=== PATIENT | female | born 1995 | race Caucasian/White ===

== ENCOUNTER 2024-07-27 14:34 | Outpatient (CLI) | payer OTHER, SELFPAY ==
--- NOTE | 2024-07-27 14:45 | CRLHL7_ITS ---
For Patients: As a result of the Cures Act, medical imaging exams and procedure reports are released immediately into your electronic medical record. You may view this report before your referring provider. If you have questions, please contact your health care provider. OB ULTRASOUND INDICATION: Dating and viability. TECHNIQUE: Real time grayscale imaging of the fetus was performed. Transvaginal. LMP: 05/25/2024. CARLI by LMP: 03/01/2025. GA: 9 w, 0 d. Previous US: No. CRL: 1.8 cm. 8 w 2 d. CARLI: 03/06/2025. FHR: 159 BPM. Gestational sac: 3.1 cm. Appears within normal limits. Yolk sac: 2.9 mm. Appears within normal limits. Right ovary: N/V. Left ovary: Within normal limits. 3.2 x 2.2 x 2.6 cm. CL. IMPRESSION: Single living intrauterine measuring 8 weeks 2 days and sonographic due date 03/06/2025. Damian Thompson M.D. Diagnostic Radiologist [email or web address] JEANETTE/zaki haines/Dictated by: Damian Thompson MD @ 07/27/2024 3:57:00 PM (Electronically Signed)
== END 2024-07-27 14:35 | disposition home or self-care (01) ==
LOC: US 14:37
PROVIDERS: PCP Family Medicine; Visit Provider Physician Assistant
DX: Z34.91 Encounter for supervision of normal pregnancy, unspecified, first trimester (principal); Z3A.08 8 weeks gestation of pregnancy
CPT/HCPCS: 76817; 83021; 86592; 86703; 86704; 86706; 86762; 86787; 86803; 86850; 86900; 86901; 87086; 87340; 87491; 87591

== ENCOUNTER 2024-10-19 07:13 | Outpatient (CLI) | payer OTHER, SELFPAY ==
--- NOTE | 2024-10-19 07:15 | CRLHL7_ITS ---
For Patients: As a result of the Century Cures Act, medical imaging exams and procedure reports are released immediately into your electronic medical record. You may view this report before your referring provider. If you have questions, please contact your health care provider. OB ULTRASOUND GREATER THAN 14 WEEKS, 10/19/2024 CLINICAL HISTORY: screen. COMPARISON: 07/27/2024. TECHNIQUE: Multiple transabdominal grayscale, color and M-mode Doppler images were obtained. FINDINGS: LMP: 05/25/2024. CARLI by LMP: 03/01/2025. GA: 21 weeks 0 days. Position: Vertex. Cervix: Visualized. Technique: TA. Length of closed cervix: 3.5 cm. Placenta/Cord Placenta Position: Posterior. Technique: TA. Placenta tip to internal OS: 8.1 cm. Umbilical Cord: 3 vessel cord. Placental Insertion: Central. Amniotic Fluid: 4.8 cm SDP. Observed Structures: Calvarium/Spine: Cerebellum: 2.0 cm, 20 weeks 1 day Cisterna Magna: 4.3 mm Nuchal Fold: 5.2 mm Lateral Ventricle: 4.9 mm CSP Choroid Plexus Midline Falx Spine Abdomen: Stomach Abd Cord Insert Urinary Bladder Kidneys Diaphragm Face: Nose/lips Orbital view Profile Limbs: Upper Extremities Lower Extremities Hands Feet Vascular: 4 Ch Heart LVOT RVOT 3VV 3VTV IMPRESSION: 1. Estimated weight is at the 22nd percentile. 2. Normal anatomic survey. Patricio Munoz M.D. Body/Diagnostic Radiologist [email or web address] Transcribed: 2:12 pm DW/Dictated by: Patricio Munoz MD @ 10/20/2024 1:44:00 PM (Electronically Signed)
== END 2024-10-19 07:14 | disposition home or self-care (01) ==
LOC: US 07:13
PROVIDERS: PCP Family Medicine; Visit Provider Advanced Practice Midwife
DX: Z34.92 Encounter for supervision of normal pregnancy, unspecified, second trimester (principal); Z3A.21 21 weeks gestation of pregnancy
CPT/HCPCS: 76805

== ENCOUNTER 2024-12-15 08:23 | Outpatient (CLI) | payer OTHER, SELFPAY | END 2024-12-15 08:24 | disposition home or self-care (01) | LOC: NFLDREF 12-17 09:53 | PROVIDERS: PCP Family Medicine; Referring Provider Family Medicine; Visit Provider Advanced Practice Midwife | DX: Z34.93 Encounter for supervision of normal pregnancy, unspecified, third trimester (principal) | CPT/HCPCS: 86592 ==

== ENCOUNTER 2025-02-02 13:30 | Outpatient (CLI) | payer OTHER, SELFPAY | END 2025-02-02 13:31 | disposition home or self-care (01) | LOC: NFLDREF 02-04 12:44 | PROVIDERS: PCP Family Medicine; Referring Provider Family Medicine; Visit Provider Advanced Practice Midwife | DX: Z34.93 Encounter for supervision of normal pregnancy, unspecified, third trimester (principal) | CPT/HCPCS: 87081; 87653 ==

== ENCOUNTER 2025-02-24 11:25 | Inpatient (IN) | payer OTHER, SELFPAY ==
[2025-02-24] VITALS (28 sets, daily range): BP systolic 103–143; BP diastolic 56–92; PULSE 78–149; TEMP 36.2–36.8; O2SAT 82–100; BMI 32.4
--- NOTE | 2025-02-24 12:31 | P.LDBA_ITS ---
Subjective History of Present Illness Narrative: Meek is a 30 yo at 39 2/7 weeks gestation being admitted to Labor and Delivery for PROM that occurred at 0730 am this morning with clear fluid. She reports it she had a pop then a gush while leaving work this morning. She has continued to have bursts of clear, pink tinged fluid. She has had some cramping but denies regular contractions or bleeding. She endorses movement. 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 She is supported in labor by [facility]. Her full history and physical was dictated by JOHN Ascencio on 02/07/2025. Please see this for details. 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 Estimated weight is at the 22nd percentile. 2. Normal anatomic survey. Vaccinations: COVID: declined 12/15/2024 Flu: declined 12/15/2024 (doing at target) Tdap: 01/19/2025 RSV: 01/19/2025 Last pap: [Only high-risk abnormal pap results in problem list] OB - Problem Based A/P Additional Plan (1) 39 weeks gestation of : Status: Acute (2) PROM (premature rupture of membranes): Status: Acute Plan ASSESSMENT:? 30 yo at 39.2 weeks gestation? complicated by:?none Labor type: early labor? Category 1 FHR pattern.?? Labor complicated by: PROM? GBS negative? ? PLAN:? 1. Routine intrapartum cares as ordered. Reviewed recommendation of pitocin with 6 hours after ROM vs expectant management for 12-24 hours. She agrees with expectant management, will re-evaluate around 1930 this evening. She is aware we may start pitocin augmentation at anytime otherwise will assess labor status at 1930 to determine if we can give labor more time vs start pitocin. 2. Monitoring per policy, intermittent? 3. Planning epidural. Candidate for analgesia of choice, when desired.?? 4. Patient encouraged to reposition and ambulate to promote physiologic labor and .? 5. Offered therapeutic rest this morning if needed, she was awake all night for work. 6. Anticipate ? Delivery/Labor/Induction Plan Plan: expectant management OB Result Labs Blood Type: O (+) positive GBS Status: negative OB Exam Physical Exam Vital signs: Temp Pulse BP Pulse Ox 97.9 F 86 118/62 96 02/24/25 12:11 02/24/25 11:08 02/24/25 11:08 02/24/25 11:48 Narrative: Vitals Reviewed Constitutional:? Alert and oriented x3 HEENT:? Normocephalic, atraumatic Neck:? Supple Lungs:? Clear to auscultation bilaterally Heart:? Regular rate and rhythm, no murmur, rub or gallop Abdomen:? Soft, nontender, and gravid. Vertex by Michael's, confirmed with bedside US Extremities:? No edema or erythema Cervix: Deferred with ROM; confirmed ROM with significant amniotic fluid on pad, pink tinged NST: [] bpm/[] variability/[]accelerations/[]decelerations/[]contractions Detailed Labor and Delivery Exam Patient Gravid: yes
[2025-02-24 19:00] LABS: Hematocrit* 35.3 % (33.0-51.0); Hemoglobin* 11.5 gm/dL (12.0-16.0); Immature Granulocytes Pct Auto 1.1 %; Lymphocytes Absolute Auto 2.10 K/uL (0.90-2.90); Mean Corpuscular HGB Conc 33 gm/dL (32-36); Mean Corpuscular Hemoglobin 28 pg (26-34); Mean Corpuscular Volume 85 fL (80-100); RDW Coefficient of Variation % 13.4 % (11.5-15.5); Red Blood Count* 4.15 m/uL (4.00-5.20); White Blood Count* 11.11 K/uL (4.50-11.00)
[2025-02-24 19:05] LABS: Immature Granulocytes Abs Auto 0.10 K/uL (0.00-0.30); Slide Review Reflex No
--- NOTE | 2025-02-24 19:54 | P.OBPN_ITS ---
Subjective Date Seen: 02/24/25 Narrative: Meek is a 30 yo at 39 2/7 weeks here following PROM at 0730 this morning. She is supported by her , Matthews. She worked last evening and was exhausted this morning when she arrived. She was able to rest some and get a nap. She continues to leak clear, pink tinged fluid. She reports she has been feeling some cramping but denies regular contractions. Objective Exam: Objective: Constitutional: Alert and oriented x3, no distress, coping well Vital signs stable, see nurse documentation Abdomen: gravid, contractions palpate mild/moderate with contractions and soft between Cervix: deferred NST: 120 bpm/moderate variability/15x15 accelerations/no decelerations/contractions 3-5 minutes lasting 50-120 seconds Vital Signs: Last Vital Signs Temp 98.1 F 02/24/25 18:32 Pulse 90 02/24/25 16:46 BP 103/56 L 02/24/25 16:46 Pulse Ox 96 02/24/25 11:48 Plan Plan: ASSESSMENT:? 30 yo at 39.2 weeks gestation? complicated by:?none Labor type: early labor? Category 1 FHR pattern.?? Labor complicated by: PROM >12 hours? GBS negative? ? PLAN:? 1. Routine intrapartum cares as ordered. Recommended IV Pitocin augmentation given little change in presentation, reviewed risk/benefit. Patient agreeable. All questions answered. 2. Monitoring per policy, intermittent? 3. Planning epidural. Candidate for analgesia of choice, when desired.?? 4. Patient encouraged to reposition and ambulate to promote physiologic labor and .? 5. Patient had elevated BP on arrival but while moving/talking. Patient was adjusted and BP was retaken was normal. 6. Anticipate ?
[2025-02-24] MEDS: LACTATED RINGERS 1000 ML 1,000 ML 125 ML IV (20:00)
[2025-02-24] MEDS: OXYTOCIN 30 unit/500 ML in NS 30 UNIT/500 ML BAG IVPB (20:01)
[2025-02-24] MEDS: LIDOCAINE 2% (PF) 5 ML VIAL EPIDURAL (22:43)
[2025-02-24] MEDS: ROPIVACAINE 0.2% 100 ml 100 ML 12 MG EPIDURAL (22:43)
[2025-02-24] MEDS: LACTATED RINGERS 1000 ML 1,000 ML 925 ML IV (22:56)
--- NOTE | 2025-02-24 22:56 | PM.ANBPRC ---
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 (ICD-10) Chicken pox ?B01.9 - Varicella without complication (ICD-10) Acne ?L70.9 - Acne, unspecified (ICD-10) Concussion ?S06.0XAA - Concussion with loss of consciousness status unknown, initial encounter (ICD-10) Family History Other Breast cancer Crohn disease High blood pressure Skin cancer Social History What is your current living situation?: I presently have a place to live Problems where you live: no known problems In the past 12 months, utilities in danger of being shut off: no In past 12 months, lack of transportation kept you from medical appts, meetings, work, or getting things needed for daily living: no In the past 12 mos, have been you worried that your food would run out before you had money to buy more?: never true In the past 12 mos, the food you bought just didn't last and you didn't have money to buy more?: never true Smoking Status: Never smoker How often does anyone, including family, friends and others, physically hurt you: never How often does anyone, including family, friends and others, insult or talk down to you: never How often does anyone, including family, friends and others, threaten you with harm: never How often does anyone, including family, friends and others, scream or curse at you: never Meds Home Medications and Allergies Home Medications ?Medication ?Instructions ?Recorded ?Confirmed ?Type docosahexaenoic acid 200 mg mg PO 07/27/24 02/22/25 History capsule ( DHA) doxylamine succinate 25 mg tablet 25 mg PO QHS PRN 11/18/24 02/24/25 History (Unisom (doxylamine)) erythromycin with ethanol 2 % 1 applic topical BID PRN 12/15/24 02/24/25 History topical gel valacyclovir 1 gram tablet 1,000 mg PO QDAY PRN 01/19/25 02/24/25 History Allergies Allergy/AdvReac Type Severity Reaction Status Date / Time cephalexin Allergy Intermediate Verified 02/24/25 10:53 Sulfa (Sulfonamide Allergy Intermediate Verified 02/24/25 10:53 Antibiotics) Results Labs Labs: Laboratory Results - last 24 hr 02/24/25 18:50 WBC 11.11 H RBC 4.15 Hgb 11.5 L Hct 35.3 MCV 85 MCH 28 MCHC 33 RDW Coeff of Charity 13.4 Plt Count 196 Neut % (Auto) 74.3 H Lymph % (Auto) 18.9 L Waldo % (Auto) 4.9 Eos % (Auto) 0.7 Baso % (Auto) 0.1 Neut # (Auto) 8.30 H Lymph # (Auto) 2.10 Waldo # (Auto) 0.50 Eos # (Auto) 0.10 Baso # (Auto) 0.00 Abs Immat Gran (auto) 0.10 Imm/Tot Granulo (auto) 1.1 Vital Signs Vital Signs: Last Vital Signs Temp 98.1 F 02/24/25 20:04 Pulse 83 02/24/25 22:52 BP 122/78 02/24/25 22:52 Pulse Ox 96 02/24/25 22:50 Weight: 91.172 kg Height: 167.64 cm Anesthesia Procedures Epidural Insertion Patient Location: OB Start Time: 10:20 Stop Time: 22:56 Start Date: 02/24/25 Stop Date: 02/24/25 Reason for Block: procedure for pain Patient Position: sitting Performed By: Glenny Mata Preanesthetic Checklist: IV checked, risks and benefits discussed, monitors and equipment checked, pre-op evaluation, timeout performed and anesthesia consent Prep: chlorhexidine gluconate Monitoring: blood pressure monitoring, continuous pulse oximetry and heart rate Approach: midline Vertebral Space: lumbar (1-5) Epidural Technique: WANG saline Needle Type: Tuohy needle Injection Technique: continuous catheter Needle gauge: 17 Needle Length (cm): 10 cm Needle Insertion Depth (cm): 6 Catheter Gauge: 19 Catheter Type: multi-orifice Catheter at skin depth (cm): 12 Test Dose Result: negative and lidocaine 1.5% with epinephrine 1 to 200,000
[2025-02-25] VITALS (14 sets, daily range): BP systolic 115–138; BP diastolic 66–85; PULSE 82–110; RESP 16–18; TEMP 36.6–36.9; O2SAT 95–98
--- NOTE | 2025-02-25 00:42 | W.PM.OBVAGDE ---
OB Procedure Vag Delivery Mother Details Mother Details: The patient is a 30 year-old, 1, now Para 1, admitted on 02/24/25 at 39.2 Days gestation. : 1 Para: 1 Weeks Gestation: 39.3 Admission Date: 02/24/25 Additional Details Amniotic Membrane Status: SROM Amniotic Membrane Rupture Date: 02/24/25 Amniotic Membrane Rupture Time: 07:30 Amniotic Membrane Fluid Description: Clear and [place] Analgesia/Anesthesia Type: Epidural Waterbirth: No Pitcoin: Yes Intrapartal Events: Labor Augmentation and Precipitous Labor <3 Hrs Labor Onset: 22:09 Complete: 23:27 Pushin:34 Heart: heart tones during second stage were category II with rise in baseline. Variables and lates with contractions that resolved with position changes. Delivery Details Delivery Date: 02/25/25 Delivery Time: 00:10 Route of delivery: Infant Gender: Male Viability: Alive; Heart Rate Present Position at Delivery: OA Delivery Details: Patient was admitted for PROM of clear fluid at 0730 am. After 12 hours of expectant management, she was feeling minimal cramping. Pitocin was started at around 2000, she then progressed precipitously with augmentation, reaching a max pitocin dose of 4 mu. She utilized an epidural for pain. Patient was complete at 2337 and pushing at 2334. At onset of pushing, continued trickle of vaginal bleeding. With change in FHR at time it was suspected there was a small placental abruption. No change in plan as delivery was imminent. of a viable male at 0010 in semi-fowlers on the bed. Vertex delivered OA. No nuchal cord or shoulder. Body delivered easily and without incident. Infant passed to mothers abdomen with a vigorous cry. Cord was clamped and cut at > 5 minutes. APGARS were 9 at one minute and 9 at five minutes respectively. Mouth was bulb suctioned. Intact placenta with a 3 vessel cord delivered spontaneously at 0018. A small area of clot adherent to placenta correlated with findings during pushing. Placenta to be sent to pathology. Fundus firm. 2nd degree vaginal laceration identified and repaired in typical fashion. QBL 75 cc after delivery, an EBL of 100ml with placenta and another 100 ml while pushing for total of 275. Mother and baby stable; mother plans to breastfeed. Infant weight pending. 1 Minute Interval Total Score: 9 5 Minute Interval Total Score: 9 Additional Details Shoulder Dystocia: No Placenta Delivery Time: 00:18 Placental Delivery Description: Spontaneous Delivery repair: Vicryl Procedure Done: Global Blood Loss: 275 Blood Loss Measurement Type: QBL Bakri Used: No Sponge/Need Count Correct: Yes Cord Vessel Description: 3 Vessels Event Summary Status: Mother and infant were stable after delivery. Disposition: floor
[2025-02-25] MEDS: miSOPROStoL 800 MCG/4 TABLET PR (01:11)
[2025-02-25] MEDS: IBUPROFEN 600 MG TABLET PO ×3 (03:02→17:57)
[2025-02-25] MEDS: ACETAMINOPHEN 500 MG TABLET 1000 MG PO ×3 (08:00→20:48)
[2025-02-25] MEDS: DOCUSATE SODIUM 100 MG CAPSULE PO (08:49)
--- NOTE | 2025-02-25 10:47 | PM.ANPOST ---
Post Anesthesia Note Post Anesthesia Note Patient seen: Inpatient Respiratory Status: adequate Cardiovascular Status: adequate Mental Status: baseline Pain: adequate Temp: baseline Anesthetic awareness: N/A Complications: none Follow care: none
[2025-02-25] MEDS: LANOLIN CREAM 1 APPLIC TOPICAL (18:00)
[2025-02-26 05:01] VITALS: BP 119/80; PULSE 77; RESP 18; TEMP 36.9; O2SAT 96
[2025-02-26] MEDS: IBUPROFEN 600 MG TABLET PO (05:02)
--- NOTE | 2025-02-26 08:45 | P.DS_ITS ---
DS: Providers Provider Date Seen: 02/26/25 Date of admission: 02/24/25 11:25 Primary care physician: Brenad Diaz MD Admitting Clinician: Carol Gan CNM Attending Physician on discharge: Carol Gan CNM Date of Discharge: 02/26/25 DS: Diagnosis Discharge Diagnosis (1) care following vaginal delivery: Status: Acute (2) Lactating mother: Status: Acute Exam Narrative: Exam Narrative: GENERAL APPEARANCE:? normal?affect, alert, no distress? MOOD:? appropriate? CHEST:? clear?to auscultation and percussion? HEART:? regular?rate and rhythm? BREASTS: soft, nontender, no erythema, nipples intact? ABDOMEN:? soft, non-tender?the uterine?fundus is?U/2?and is?appropriate for?the stage of recovery.? PERINEUM:? mild?edema of the perineum, there is?a?2nd degree laceration?that?is healing well.? EXTREMITIES:? normal?and no edema? Const: Vital Signs, click to edit/add: Vital Signs - 24 hr 02/25/25 12:41 02/25/25 16:49 02/25/25 20:41 Temperature 98.5 F 98.3 F 98.2 F Pulse Rate [Pulse Oximeter] 82 82 88 Respiratory Rate 18 16 16 Blood Pressure [Le ft Arm] 115/78 138/85 122/82 Pulse Oximetry 96 97 95 Oxygen Delivery Me thod Room Air Room Air Room Air 02/26/25 05:01 Temperature 98.4 F Pulse Rate [Pulse Oximeter] 77 Respiratory Rate 18 Blood Pressure [Le ft Arm] 119/80 Pulse Oximetry 96 Oxygen Delivery Me thod Room Air Documenting provider has reviewed patient's vital signs: yes OB - DS: Summary Hospital Course Hospital Course: Meek is a 30 year old G 1 P 1 at 39.3 weeks gestation that was admitted to the Center on 02/24/25 for PROM that progressed with Pitocin augmentation. She had an uncomplicated vaginal delivery. She delivered a viable male infant. She is breast feeding and denies current concerns with how it is going. the patient has done well. Her?pain is well controlled with current medications.??She has no new complaints.??Urinary output is?adequate?and she is voiding without difficulty.??Has?a good appetite, is tolerating a general diet, is passing flatus, and has?not?had a bowel movement.??Has?scant?amount?of rubra lochia.??She?is?ambulating?well. She is uncertain what she is planning for PP contraception. Options compatible with were reviewed and she will discuss with her partner. Peripartum Data delivery method: Vaginal Laceration description: Perineal - 2nd Degree Episiotomy description: None complications: none Whitman Gender: Male Infant Discharge Plan: Home Status at Discharge Functional status at discharge: independent ambulation Overall status at discharge: patient is progressing back to baseline Time Spent with Patient Time attestation: Total time spent providing and/or coordinating discharge services: Discharge Plan Discharge Disposition: Home, Self-Care Date of Admission: 02/24/25 11:25 Attending Provider on Discharge: Oliva Quintana Primary Care Provider: Brenda Diaz Condition: Stable Anticipated Discharge Date/Time: 02/26/25 10:00 Discharge Medications: New docusate sodium 100 mg Capsule 100 mg PO DAILY Qty: 120 0RF Rx Instructions: Take 1-2 tablets daily as needed for constipation. ibuprofen 600 mg Tablet 600 mg PO Q6H PRNQty: 60 0RF Continued DHA 200 mg capsule 200 mg PO DAILY erythromycin with ethanol 2 % gel 1 applic topical BID PRN valacyclovir 1 gram tablet 1,000 mg PO QDAY PRN Discontinued Unisom (doxylamine) 25 mg tablet 25 mg PO QHS PRN Discharge Orders: Discharge Order (Routine); Ordered 02/26/25 Ordered By: Oliva Quintana Patient Education: OB Vaginal/Breast Feeding Additional Instructions: Discharge instructions were reviewed with the patient including signs and symptoms of infection and home going medications Nothing vaginally for 6 weeks: no tampons or intercourse Do not drive while taking narcotic pain medication(s) Off Work or School for 8 weeks Symptoms to report to doctor: * Bleeding that saturates more than one pad per hour * Passing clots larger than the size of a golf ball * Pain not relieved by prescribed medication * Fever above 100.4 degrees Fahrenheit * A foul vaginal odor * Difficulty in emotions, mood, and functions * Thoughts of hurting yourself and/or * Painful, reddened area in your breast * Any drainage, redness, or tenderness in your IV/epidural site * Severe headache that doesn't improve after taking medications * Changes in vision, including temporary loss of vision, blurred vision, and/or light sensitivity * Upper abdominal pain (usually under ribs on the right side) * Decrease in urination or painful, frequent urinating * Chest pain * Shortness of breath * Tenderness or pain with redness and/swelling in the calf(s) of your leg 2-week visit: discuss feeding concerns, review control options and screen for anxiety/depression. 6-week visit for an annual exam. consultation services are available to all mothers and babies for the first year after delivery.? To make an appointment, please call [phone]. Activity Level: Activity as Tolerated Discharge Diet: Regular Follow Up Appointments: [facility] [Provider Group] Forms: [email or web address] Info Instructions
[2025-02-26 08:46] VITALS: BP 109/75; PULSE 85; RESP 16; TEMP 36.6; O2SAT 96
[2025-02-26] MEDS: ACETAMINOPHEN 500 MG TABLET 1000 MG PO (09:14)
[2025-02-26] MEDS: DOCUSATE SODIUM 100 MG CAPSULE PO (09:14)
== END 2025-02-26 13:50 | disposition home or self-care (01) | DRG 807 ==
LOC: OB OUT 16:10 → OB 16:10
PROVIDERS: Admitting Provider Advanced Practice Midwife; PCP Family Medicine; Visit Provider Advanced Practice Midwife
DX: O42.02 Full-term premature rupture of membranes, onset of labor within 24 hours of rupture (principal); Z37.0 Single live birth; O62.3 Precipitate labor; O70.1 Second degree perineal laceration during delivery; Z3A.39 39 weeks gestation of pregnancy
CPT/HCPCS: 01967; 36415; 76815; 85025; 86780; A9270; J2795; J7120